=== PATIENT | female | born 1965 | race Two or more races ===

== ENCOUNTER 2023-08-27 10:14 | Inpatient (IN) | payer OTHER ==
[~2023-08-27] VITALS: Ht 162.6 cm; Wt 72.1 kg
[2023-08-27] MEDS ORDERED: EVISTA60 MG (11:10)
[2023-08-30] MEDS ORDERED: CLARITIN-D 121 EACH (09:01)
[2023-08-30] MEDS ORDERED: VITAMIN A2400 MCG (09:01)
[2023-08-30] MEDS ORDERED: MAGNESIUM200 MG (09:02)
[2023-08-30] MEDS ORDERED: VITAMIN B-121000 MC4 (09:02)
[2023-08-30] MEDS ORDERED: VITAMIN C100 MG (09:02)
[2023-08-30] MEDS ORDERED: VITAMIN D310 MC4 (09:02)
[2023-08-30] MEDS ORDERED: B COMPLEX1 EACH (09:02)
[2023-08-30] MEDS ORDERED: CALCIUM500 M1 (09:02)
[2023-08-30 16:32] LABS: HEMOGLOBIN 12.7 g/dL (12.0-15.00); MEAN CELL VOLUME 95.4 fL (80.00-100.00); MEAN CORPUSCULAR HEMOGLOBIN 32.8 pg (27.00-32.0); MEAN CORPUSCULAR HGB CONC 34.4 g/dl (32.0-36.0); PLATELET COUNT 212 K/uL (150-450); RED BLOOD COUNT 3.88 M/uL (4.00-6.00)
[2023-08-30 23:18] LABS: HEMATOCRIT 35.6 % (36.0-45.00); HEMOGLOBIN 12.2 g/dL (12.0-15.00); MEAN CELL VOLUME 94.5 fL (80.00-100.00); MEAN CORPUSCULAR HEMOGLOBIN 32.4 pg (27.00-32.0); MEAN CORPUSCULAR HGB CONC 34.3 g/dl (32.0-36.0); PLATELET COUNT 200 K/uL (150-450); RED BLOOD COUNT 3.77 M/uL (4.00-6.00); RED CELL DISTRIBUTION WIDTH 13.2 % (11.5-14.5)
[2023-08-31 01:16] LABS: CALCIUM 8.4 mg/dL (8.5-10.1); CREATININE SERUM 0.62 mg/dL (0.55-1.02); GFR 98.52; POTASSIUM 4.28 mEq/L (3.5-5.1)
== END 2023-08-31 15:36 | disposition home or self-care (01) | DRG 743 ==
LOC: O/R 08-30 06:23 → SURG 08-30 10:15 → OB/GYN 08-30 13:16
PROVIDERS: Obstetrics & Gynecology; ADMIT Obstetrics & Gynecology Gynecologic Oncology; ATTEND Obstetrics & Gynecology Gynecologic Oncology
PROC: 0UT74ZZ Resection of Bilateral Fallopian Tubes, Percutaneous Endoscopic Approach (ICD-10-PCS; 2023-08-30)
PROC: 0UT24ZZ Resection of Bilateral Ovaries, Percutaneous Endoscopic Approach (ICD-10-PCS; 2023-08-30)
PROC: 07BC4ZZ Excision of Pelvis Lymphatic, Percutaneous Endoscopic Approach (ICD-10-PCS; 2023-08-30)
PROC: 0DBW4ZX Excision of Peritoneum, Percutaneous Endoscopic Approach, Diagnostic (ICD-10-PCS; 2023-08-30)
PROC: 3E1M48Z Irrigation of Peritoneal Cavity using Irrigating Substance, Percutaneous Endoscopic Approach (ICD-10-PCS; 2023-08-30)
PROC: 0UT94ZZ Resection of Uterus, Percutaneous Endoscopic Approach (ICD-10-PCS; principal; 2023-08-30 11:30)
DX: N85.02 Endometrial intraepithelial neoplasia [EIN] (principal); D25.2 Subserosal leiomyoma of uterus; D27.1 Benign neoplasm of left ovary; Z20.822 Contact with and (suspected) exposure to COVID-19